=== PATIENT | female | born 1960 | race Caucasian/White ===

== ENCOUNTER → 2021-08-06 | Outpatient (CLI) | payer MEDICARE | LOC: KOH-I 11:32 | DX: R05.9 Cough, unspecified (principal); J06.9 Acute upper respiratory infection, unspecified; J18.9 Pneumonia, unspecified organism | CPT/HCPCS: 71046 ==

== ENCOUNTER → 2021-09-04 | Outpatient (CLI) | payer MEDICARE | LOC: KOH-I 11:53 | DX: J18.9 Pneumonia, unspecified organism (principal) | CPT/HCPCS: 71046 ==

== ENCOUNTER 2022-04-26 23:52 | Emergency (ER) | payer MEDICARE ==
[2022-04-27 00:11] LABS: RED BLOOD COUNT 4.48 M/UL (4.00-5.10)
== END 2022-04-27 04:50 | disposition home or self-care (01) ==
LOC: ER1 23:52
DX: R07.9 Chest pain, unspecified (principal); I10 Essential (primary) hypertension
CPT/HCPCS: 71045; 80053; 82550; 82553; 83874; 84484; 85025; 93005; 99285

== ENCOUNTER → 2022-06-16 | Outpatient (CLI) | payer MEDICARE | LOC: HEART 5 06-12 09:30 | DX: I20.8 Other forms of angina pectoris (principal); R06.02 Shortness of breath; Z86.16 Personal history of COVID-19 | CPT/HCPCS: 78452; 93306; A9502; J2785 ==